=== PATIENT | male | born 1945 | race Caucasian/White ===

== ENCOUNTER 2018-12-09 14:46 | Emergency (ER) | payer MEDICARE, OTHER ==
[~2018-12-09] VITALS: Ht 177.8 cm; Wt 81.0 kg
[2018-12-09] MEDS ORDERED: HYDROcodone/acetaminophen 5mg/325mg tablet PO ONE (18:00)
[2018-12-09] MEDS ORDERED: ondansetron 4mg rapidly disintigrating tab PO ONE (18:00)
[2018-12-09] MEDS ORDERED: HYDR-4383 PO (18:40)
[2018-12-09 18:51] VITALS: BP 145/85
== END 2018-12-09 18:54 | disposition home or self-care (01) ==
LOC: ER 14:47
DX: S42.251A Displaced fracture of greater tuberosity of right humerus, initial encounter for closed fracture (principal); M25.521 Pain in right elbow; M25.551 Pain in right hip; M19.90 Unspecified osteoarthritis, unspecified site; G89.29 Other chronic pain; W11.XXXA Fall on and from ladder, initial encounter; Y93.89 Activity, other specified; Y92.89 Other specified places as the place of occurrence of the external cause; Y99.8 Other external cause status
CPT/HCPCS: 29105; 73030; 73080; 73502; 99283

== ENCOUNTER 2021-09-30 10:22 | Day surgery (SDC) | payer OTHER, MEDICARE ==
[2021-09-25 11:24] LABS: BASOPHILS % (AUTO) 0.7 % (0-1); EOSINOPHILS # (AUTO) 0.1 X10'3 (0-0.9); LYMPHOCYTES # (AUTO) 0.9 X10'3 (1.1-4.8); LYMPHOCYTES % (AUTO) 24.5 % (21-51); MEAN CORPUSCULAR HEMOGLOBIN 32.2 PG (27.0-31.0); MEAN CORPUSCULAR HGB CONC 33.1 g/dL (33.0-36.5); MEAN CORPUSCULAR VOLUME 97.1 FL (78-98); MEAN PLATELET VOLUME 8.7 FL (7.4-10.4); MONOCYTES # (AUTO) 0.4 X10'3 (0-0.9); MONOCYTES % (AUTO) 12.3 % (2-12); NEUTROPHILS % (AUTO) 58.5 % (42-75); PRE OP HEMATOCRIT 41.9 % (42.0-52.0); PRE OP HEMOGLOBIN 13.9 g/dL (14.0-17.9); PRE OP PLATELET COUNT 190 X10'3 (140-440); RED BLOOD COUNT 4.32 X10'6 (4.70-6.10); RED CELL DISTRIBUTION WIDTH 13.3 % (11.5-14.5)
[2021-09-25 11:32] LABS: ALBUMIN/GLOBULIN RATIO 1.4 (1.1-1.5); ALKALINE PHOSPHATASE 67 IU/L (46-116); BLOOD UREA NITROGEN 17 MG/DL (7-18); BUN/CREATININE RATIO 12.4 (5.4-32.0); CALCIUM 9.2 MG/DL (8.5-10.1); CHLORIDE 98 MMOL/L (99-107); CREATININE 1.37 MG/DL (0.60-1.10); PRE OP ALT 24 U/L (30-65); PRE OP ANION GAP 10 (8-16); PRE OP AST 20 U/L (10-37); PRE OP BILIRUB, TOTAL 0.5 MG/DL (0.0-1.0); PRE OP GLUCOSE 91 MG/DL (70-104); PRE OP SODIUM 135 MMOL/L (135-145); TOTAL CARBON DIOXIDE 27.4 MMOL/L (24-32); TOTAL PROTEIN 6.8 G/DL (6.4-8.2); eGFR 50 ML/MIN
[2021-09-25 11:34] LABS: PRE OP POTASSIUM 4.8 MMOL/L (3.4-5.1)
[~2021-09-30] VITALS: Ht 177.8 cm; Wt 82.1 kg
[2021-09-30] VITALS (22 sets, daily range): BP systolic 138–191; BP diastolic 70–108
[~2021-09-30 10:22] MED LIST: ALBU8.5H17 IH; APIX5TAB3 PO; ARTIFICIAL SALIVA PO; CARB15DR58 EACHEYE; CYCL1DRO EACHEYE; DICLOFENAC GEL TOP; DOCU100C40 PO; GABA600T13 PO; GUAI400T92 PO; HYDR-3964 PO; MULT-381 PO; OMEP20TA5 PO; TEMA30CA5 PO; albuterol 2.5 MG/3 ML nebule NEB ONE; cefazolin/dext.iso 2gm/50ml IV ONE; famotidine 20mg tablet PO ONE; ringers solution, lacted 1,000 ML IV SCH
[2021-09-30] MEDS ORDERED: ondansetron/PF 4mg/2ml inj IV PRN (14:50)
[2021-09-30] MEDS ORDERED: morphine 2 MG/ML inj. syringe IV PRN (14:50)
[2021-09-30] MEDS ORDERED: hydrALAZINE 20mg/ml inj. IV PRN (14:50)
[2021-09-30] MEDS ORDERED: fentaNYL/PF 50MCG/1 ML 2ML syringe IV PRN ×2 (14:50)
[2021-09-30] MEDS ORDERED: morphine 4 MG/ML inj SYRINge IV PRN (14:50)
[2021-09-30] MEDS ORDERED: ringers solution, lacted 1,000 ML IV SCH (14:50)
[2021-09-30] MEDS ORDERED: LIDOcaine 1% 30ml preserv. free vial ONE (15:16)
[2021-09-30] MEDS ORDERED: BUPIVAcaine 0.5% inj/PF 30 ML ONE (15:17)
[2021-09-30] MEDS ORDERED: dexamethasone sod phosphate 10mg/ml inj ONE (15:25)
[2021-09-30] MEDS ORDERED: sevoflurane 250ml liquid IH ONE (15:25)
[2021-09-30] MEDS ORDERED: glycopyrrolate 0.2mg/ml inj ONE (15:25)
[2021-09-30] MEDS ORDERED: fentaNYL/PF 50MCG/1 ML 2ML syringe ONE ×2 (15:27)
[2021-09-30] MEDS ORDERED: midazolam 1 mg/ML 2ml injection ONE (15:28)
[2021-09-30] MEDS ORDERED: neostigmine methylsulfate 1 MG/ML 10ml vial ONE (15:28)
[2021-09-30] MEDS ORDERED: propofol inj 20 ML IV ONE (15:28)
[2021-09-30] MEDS ORDERED: LIDOcaine 2% (20mg/ml) 5ml vial ONE (15:28)
[2021-09-30] MEDS ORDERED: rocuronium 10mg/ml inj IV ONE ×2 (15:29→16:50)
[2021-09-30] MEDS ORDERED: ondansetron/PF 4mg/2ml inj ONE (15:31)
[2021-09-30] MEDS ORDERED: labetalol 20mg/4ml (5mg/ml) syringe IV ONE (15:58)
[2021-09-30] MEDS ORDERED: BUPIVAcaine 0.5% inj/PF 30 ml vial IJ ONE (17:02)
[2021-09-30] MEDS ORDERED: oxyCODONE/APAP 5-325mg tablet PO PRN (17:25)
--- NOTE | 2021-09-30 17:26 | NUR ---
Received from OR via [facility], accompanied by Anesthesiologist DR CRAMER and report given by Anesthesiolgist. PT PRESENTS WITH 20G LEFT WRIST, ABD DRESSINF CLEAN DRY AND INTACT, VSS. Addendum: 09/30/21 at 1756 by Jacque Packer RN, RN Amended: Links added.
[2021-09-30] MEDS: enalaprilat dihydrate 2.5mg/2ml vial IV PRN ×2 (17:31→19:09)
--- NOTE | 2021-09-30 21:00 | NUR ---
PT ARRIVED TO RECOVERY VIA BED, ACCOMPANIED BY DR. CRAMER-REPORT GIVEN, VSS, DENIES PAIN, PT WAKING UP, SCDS ON, NEW GTUBE TAPED IN PLACE, WITH 3 BANDAIDS TO ABD-CDI. Addendum: 09/30/21 at 2144 by Sade Daugherty RN CHARTED ON WRONG PT
--- NOTE | 2021-09-30 21:16 | NUR ---
PT DRESSED UP IN W/C, F/C IN PLACE TOLERATING WELL-EDUCATED BY LEO SMILEY AND MYSELF, BP BETTER AFTER HYDRALAZINE DOSE, VSS, PAIN UNDER CONTROL WITH PERCOCET, PT EDUCATED FOR D/C REGARDING F/C CARE AND HOME CARE FOLLOING SX-INSTRUCTIONS GIVEN FOR BOTH, PIV REMOVED-CANULA INTACT, NO CHANGE IN ABD DRSG, TAKEN VIA W/C TO FOR TRANSPORT HOME.
== END 2021-09-30 21:16 | disposition home or self-care (01) ==
LOC: PAS 10:22
PROVIDERS: ATTEND Surgery
DX: K40.31 Unilateral inguinal hernia, with obstruction, without gangrene, recurrent (principal); K43.9 Ventral hernia without obstruction or gangrene; K42.0 Umbilical hernia with obstruction, without gangrene; G62.9 Polyneuropathy, unspecified; G89.29 Other chronic pain; I48.91 Unspecified atrial fibrillation; I12.9 Hypertensive chronic kidney disease with stage 1 through stage 4 chronic kidney disease, or unspecified chronic kidney disease; N18.30 Chronic kidney disease, stage 3 unspecified; J44.9 Chronic obstructive pulmonary disease, unspecified; K21.9 Gastro-esophageal reflux disease without esophagitis; M19.90 Unspecified osteoarthritis, unspecified site; Z72.89 Other problems related to lifestyle; Z98.890 Other specified postprocedural states; Z87.891 Personal history of nicotine dependence; Z79.01 Long term (current) use of anticoagulants; Z79.899 Other long term (current) drug therapy; Z20.822 Contact with and (suspected) exposure to COVID-19
CPT/HCPCS: 36415; 49651; 49652; 71046; 80053; 82948; 85025; 93005; C1781; J0360; J2250; J2270; J2405; J2704; J2710; J3010; J3490; J7030; J7120; S0020; U0003; U0005; Z7506; Z7508; Z7512; A4215; A4618; J0690; J1100

== ENCOUNTER 2024-12-24 15:34 | Emergency (ER) | payer OTHER, MEDICARE ==
[~2024-12-24] VITALS: Ht 177.8 cm; Wt 86.4 kg
[~2024-12-24 15:34] MED LIST changes: +GABA-1405 PO; -GABA600T13 PO; +OMEP20TA43 PO; -OMEP20TA5 PO; -albuterol 2.5 MG/3 ML nebule NEB ONE; -cefazolin/dext.iso 2gm/50ml IV ONE; -famotidine 20mg tablet PO ONE; -ringers solution, lacted 1,000 ML IV SCH
--- NOTE | 2024-12-24 15:50 | ELECTROCARDIOGRAPH REPORT ---
[facility] Test Date: 2024-12-24 Test Time: 15:47:32 Pat Name: RONAL HINES Department: SHORT STAY 1ST FLOOR Patient ID: [facility]-[id number] Room: Gender: M [employer]: : 1945 Requested By: KIRILL BRENNAN Order Number: [id number] Reading MD: Dr. Lorin Pitts Measurements Intervals Section Rate: 66 P: 0 AR: 0 QRS: 51 QRSD: 113 T: -5 QT: 425 QTc: 446 Interpretive Statements Atrial fibrillation Borderline intraventricular conduction delay Electronically Signed On 12-25-2024 18:45:[address] Lorin Pitts Please click the below link to view image of tracing.
--- NOTE | 2024-12-24 15:59 | Physician Documentation ---
History of Present Illness ~ Chief Complaint: Irregular Heartbeat Stated Complaint: ALOC Time Seen by MD: 15:59 HPI This is a patient with a history of atrial fib and chronic pain syndrome. He reports that he takes for Williams a day. He takes these after each meal and at b edtime. He notes that he took his afternoon Williams in his confident that he only took one. His then called an ambulance due to concerns for his mentation as he was acting disoriented and sleepier than usual. On arrival, he was disoriented, repetitive speech, no focal neuro deficits. Takes Eliquis. Medication Reconciliation Allergies: Coded Allergies: No Known Allergies (Unverified , 06/16/16) Scheduled Apixaban (Eliquis), 1 TAB PO Q12H, (Reported) Docusate Sodium (Docusate Sodium), 240 MG PO DAILY, (Reported) Gabapentin (Gabapentin), 400 MG PO QID, (Reported) Multivitamin with Minerals (Daily Vitamin Formula-Minerals), 1 TAB PO DAILY, (Reported) Omeprazole (Omeprazole), 2 TAB PO DAILY, (Reported) Temazepam* (Restoril*), 1 CAP PO HS, (Reported) Scheduled PRN Albuterol Sulfate (Proair Hfa), 2 PUFFS IH Q6H PRN for SOB or wheezing, (Repor gonzalez) Carboxymethylcellulose Sodium (Thera Tears), 1 DROP EACHEYE Q6H PRN for dry eyes, (Reported) Cyclosporine (Restasis), 1 DROP EACHEYE PRN PRN for dry eyes, (Reported) Guaifenesin (Guaifenesin), 400 MG PO Q4H PRN for cough, (Reported) Hydrocodone Bit/Acetaminophen (Hydrocodon-Acetaminophen 5-325), 1 EACH PO Q6H PRN for P, (Reported) [Artificial Saliva], 3-5 SPRAYS PO QID PRN for dry mouth, (Reported) [Diclofenac Gel], 1 APPLIC TOP QID PRN for P, (Reported) Past Medical History Past Medical History: Pneumonia, Hernia, Arthritis, Chronic Pain Past Surgical History: noncontributory Other Past Family History: NONCONTRIBUTORY Alcohol Use: Occasionally Drug Use: none Lives with: Spouse Occupation: disabled Review of Systems ROS As stated above in the HPI, otherwise all systems are reviewed and negative. Physical Exam Vital Signs: Temperature: 97.2, Source: Temporal, Heart Rate: 89, Respiratory Rate: 15, BP: 168/69, Pulse Oximetry: 96, Weight: 86.360 Oxygen Flow Rate: 0 Physical Exam General: Alert, no apparent distress. HEENT: PERRL, EOMI, no injection, moist mucous membranes. Neck: Full range of motion. Respiratory: Lungs clear, no respiratory distress. Chest: No accessory muscle use. Cardiovascular: Regular rate and rhythm, no murmurs. Gastrointestinal: Soft, nontender, nondistended. Bowels sounds present. Extremities: Normal range of motion, no deformity. Neurologic: Initially, following commands but repeating himself and stating "I'm not sure what's happening." Was unable to provide full hx. On reeval an hr later, was found to be alert and oriented. Able to provide hx that only took one norco and had no concerns other than feeling a little week. Cranial nerves II- XII intact at this time. No facial droop, pronator drift, or slurred speech noted. Psych: Normal mood and affect. Skin: Normal color, warm and dry. No edema, no ecchymosis. Progress Results/Orders Results/Orders Orders - BETH LOPEZ NP Accucheck (12/24/24 16:03) Ct Head (12/24/24 16:03) Page Hospitalist (12/24/24 17:32) Completed Orders - BETH LOPEZ NP Urinalysis, Cult If Indicated (12/24/24 16:03) Ct Head (12/24/24 16:03) Drug Screen, Urine (12/24/24 16:40) Vital Signs 12/24/24 15:39 Temp 97.2 Pulse 89 Resp 15 B/P (MAP) 168/69 Pulse Ox 96 O2 Flow Rate 0 Laboratory Tests Test 12/24/24 15:56 12/24/24 17:03 White Blood Count 5.5 Red Blood Count 4.12 L Hemoglobin 13.1 L Hematocrit 38.1 L Mean Corpuscular Volume 92.5 Mean Corpuscular Hemoglobin 31.8 H Mean Corpuscular Hemoglobin Concent 34.4 Red Cell Distribution Width 14.6 H Platelet Count 186 Mean Platelet Volume 8.4 Neutrophils (%) (Auto) 56.3 Lymphocytes (%) (Auto) 26.9 Monocytes (%) (Auto) 12.4 H Eosinophils (%) (Auto) 3.9 Basophils (%) (Auto) 0.5 Neutrophils # (Auto) 3.1 Lymphocytes # (Auto) 1.5 Monocytes # (Auto) 0.7 Eosinophils # (Auto) 0.2 Basophils # (Auto) 0.0 CBC Comment Sodium Level 135 Potassium Level 4.1 Chloride Level 99 Carbon Dioxide Level 29.7 Anion Gap 6 L Blood Urea Nitrogen 18 Creatinine 1.44 H Estimated GFR/1.73 m2 47 BUN/Creatinine Ratio 12.5 Glucose Level 98 Calcium Level 8.7 Total Bilirubin 0.5 Aspartate Amino Transf (AST/SGOT) 23 Alanine Aminotransferase (ALT/SGPT) 21 Alkaline Phosphatase 80 Troponin I High Sensitivity 10 Pro-B-Type Natriuretic Peptide 2383 H Total Protein 6.7 Albumin 3.6 Globulin 3.1 Albumin/Globulin Ratio 1.2 Chemistry Comments Urine Specimen Description Cln catch midstream Urine Color Yellow Urine Clarity Clear Urine pH 7.0 Urine Specific [place] 1.010 Urine Protein Negative Urine Glucose (UA) Negative Urine Ketones Negative Urine Occult Blood Negative Urine Nitrite Negative Urine Bilirubin Negative Urine Urobilinogen 0.2 Urine Leukocyte Esterase Negative Urine Culture Indicated Not ind Volume Urine Centrifuged 10 ml Urine Comment Urine Opiates Screen Positive H Urine Methadone Screen Negative Urine Fentanyl Screen Negative Urine Barbiturates Screen Negative Urine Phencyclidine Screen Negative Urine Amphetamines Screen Negative Urine Benzodiazepines Screen Negative Urine Cocaine Screen Negative Urine Cannabinoids Screen Negative Drug Screen Comment EKG/XRAY/CT/US/VASC/MRI EKG : Additional Comment 1547 EKG interpreted to show RSR rate of 66. No ST segment elevation. QTC 446 ms. Chest X-Ray : Additional Comments DIAGNOSTIC RADIOLOGY Patient: RONAL HINES Medical Record: [id number] : 1945, Age: 79 Sex: Male Location: ER Patient Status: REG ER Service Date/Time: 05/11/25/ 1548 Ordering Physician: KIRILL BRENNAN DO Exam: CHEST,SINGLE VIEW CHEST RADIOGRAPH Indication: CP Technique: Single frontal view of the chest was obtained COMPARISON: None FINDINGS: Lines and Tubes: None Lungs: Bibasilar linear airspace opacities Pleura: No effusion. No pneumothorax. Cardiomediastinal contours: Unremarkable Bones: Scattered degenerative changes. IMPRESSION: Bibasilar linear airspace opacities favored to represent subsegmental atelactasis or scarring. No lobar consolidation. Electronically Signed by:ZOEY TAN MD Date & Time: 12/24/241719 Dictated by: ZOEY TAN MD Dictation date and time: 12/24/24 162 Primary Care Provider: NO PRIMARY CARE PROVIDER cc: KIRILL BRENNAN DO ~ CT : Impression CAT SCAN Patient: RONAL HINES Medical Record: [id number] [facility] : 1945, Age: 79 Sex: Male Location: ER Patient Status: [facility] ER Service Date/Time: 12/24/241602 Ordering Physician: BETH LOPEZ COMMUNITY LIFE DIRECTOR Exam: CT HEAD EXAM: CT CT HEAD HISTORY: aloc COMPARISON: None TECHNIQUE: Noncontrast axial CT images of the head were performed. Sagittal and coronal reformatted images were obtained. This CT exam was performed using 1 or more of the following dose reduction techniques: Automated exposure control, a djustment of the mA and/or kv according to patient size, or the use of iterative reconstruction techniques. Radiation Dose: CTDI volume is 55.27 mGy. Dose-length product is 1039.59 mGy*cm FINDINGS: There is mild global brain atrophy. There is [id number] decreased attenuation in the periventricular white matter. 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 There are postoperative changes of bilateral cataract extraction surgery. No intracranial hemorrhage, mass, midline shift, hydrocephalus, or evidence of acute large vessel infarct. There is a tiny cavum septum pellucidum. The paranasal sinuses are clear. The bilateral middle ear spaces are clear. There is fluid density in the bilateral mastoid air cells. No cranial fracture or scalp edema. IMPRESSION: 1. Global brain atrophy and chronic ischemic changes without evidence of acute intracranial process. 2. Fluid density in the bilateral mastoid air cells may be due to sterile fluid or mastoiditis. Electronically Signed by:SIRISHA DE LA PAZ MD Date & Time: 12/24/241631 Dictated by: SIRISHA DE LA PAZ MD Dictation date and time: 12/24/241631 Primary Care Provider: NO PRIMARY CARE PROVIDER cc: BETH LOPEZ COMMUNITY LIFE DIRECTOR ~ Medical Decision Making Additional Information This is an 79-year-old male with a history of atrial fib on Eliquis who presented to the emergency department today with an episode of somnolence and confusion. CT head was pursued and showed no acute changes. Labs were unremarkable as was his urinalysis. He did return to baseline. This episode is concerning for a TIA. It could also represent encephalopathy in the context of his chronic QID use of opiods for chronic pain. He is appropriate for admission and the hospitalist has been contacted and requested to evaluate him for admission. Patient not agreeable to staying, hospitalist evaluation canceled. Discussed the risks and benefits, patient declines to stay, stating that he will go to the [facility] clinic in the morning. Departure Time of Disposition: 17:46 Disposition: 01 HOME / SELF CARE / HOMELESS Impression: Primary Impression: Altered level of consciousness Discharge Instructions: Altered Mental Status Additional Instructions: It is unclear what caused your symptoms. It could be that you inadvertently took two of your usual pain pills. Be very cautious with use of opioids, as they can cause somnolence and respiratory depression. Please do see your primary care provider tomorrow. Return if worse. Referrals: NO PRIMARY CARE PROVIDER (PCP) Education Educated: Patient, Family Educated regarding: diagnosis, treatment, prognosis, need for follow up Signature Scribe Signature: no scribe Attestation: The note accurately reflects work and decisions made by me.Beth Packer NP 12/24/24 16:00 BETH LOPEZ NP December 24, 2024 15:59
[2024-12-24 16:26] LABS: BASOPHILS % (AUTO) 0.5 % (0-1); EOSINOPHILS # (AUTO) 0.2 X10'3 (0-0.9); EOSINOPHILS % (AUTO) 3.9 % (0-6); HEMATOCRIT 38.1 % (42.0-52.0); HEMOGLOBIN 13.1 g/dl (14.0-17.9); LYMPHOCYTES # (AUTO) 1.5 X10'3 (1.1-4.8); LYMPHOCYTES % (AUTO) 26.9 % (21-51); MEAN CORPUSCULAR HEMOGLOBIN 31.8 PG (27.0-31.0); MEAN CORPUSCULAR HGB CONC 34.4 g/dL (33.0-36.5); MEAN CORPUSCULAR VOLUME 92.5 FL (78-98); MEAN PLATELET VOLUME 8.4 FL (7.4-10.4); MONOCYTES # (AUTO) 0.7 X10'3 (0-0.9); MONOCYTES % (AUTO) 12.4 % (2-12); NEUTROPHILS # (AUTO) 3.1 X10'3 (1.8-7.7); NEUTROPHILS % (AUTO) 56.3 % (42-75); PLATELET COUNT 186 X10'3 (140-440); RED BLOOD COUNT 4.12 X10'6 (4.70-6.10); RED CELL DISTRIBUTION WIDTH 14.6 % (11.5-14.5); WHITE BLOOD COUNT 5.5 X10'3 (4.5-11.0)
[2024-12-24 16:30] LABS: ALANINE AMINOTRANSFERASE 21 U/L (12-78); ALBUMIN 3.6 G/DL (3.4-5.0); ALBUMIN/GLOBULIN RATIO 1.2 (1.1-1.5); ALKALINE PHOSPHATASE 80 IU/L (46-116); ANION GAP 6 (8-16); ASPARTATE AMINO TRANSFERASE 23 U/L (10-37); BILIRUBIN,TOTAL 0.5 MG/DL (0.1-1.0); BLOOD UREA NITROGEN 18 MG/DL (7-18); BUN/CREATININE RATIO 12.5 (10.0-20.0); CALCIUM 8.7 MG/DL (8.5-10.1); CHLORIDE 99 MMOL/L (99-107); CREATININE 1.44 MG/DL (0.60-1.10); GLUCOSE 98 MG/DL (70-104); POTASSIUM 4.1 MMOL/L (3.5-5.1); SODIUM 135 MMOL/L (135-145); TOTAL CARBON DIOXIDE 29.7 MMOL/L (24-32); TOTAL PROTEIN 6.7 G/DL (6.4-8.2); eCRCL 42 ML/MIN; eGFR 47 ML/MIN
--- NOTE | 2024-12-24 16:35 | RADIOLOGY REPORT ---
EXAM: CT CT HEAD HISTORY: aloc COMPARISON: None TECHNIQUE: Noncontrast axial CT images of the head were performed. Sagittal and coronal reformatted i mages were obtained. This CT exam was performed using 1 or more of the following dose reduction techn iques: Automated exposure control, adjustment of the mA and/or kv according to patient size, or the u se of iterative reconstruction techniques. Radiation Dose: CTDI volume is 55.27 mGy. Dose-length product is 1039.59 mGy*cm FINDINGS: There is mild global brain atrophy. There is exqr-[id number] decreased attenuation in the periventri cular white matter. 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 There are postoperative changes of bilateral cataract extraction surgery. No intracranial hemorrhage, mass, midline shift, hydrocephalus, or evidence of acute large vessel infarct. There is a tiny cavum septum pellucidum. The paranasal sinuses are clear. The bilateral middle ear spaces are clear. There is fluid density in the bilateral mastoid air cells. No cranial fracture or scalp edema. IMPRESSION: 1. Global brain atrophy and chronic ischemic changes without evidence of acute intracranial process. 2. Fluid density in the bilateral mastoid air cells may be due to sterile fluid or mastoiditis.
[2024-12-24 16:37] LABS: PRO BRAIN NATRIURETIC PEPTIDE 2383 PG/ML (0-450)
[2024-12-24 17:18] LABS: BILIRUBIN,URINE NEGATIVE (Neg); CLARITY,URINE CLEAR (Clear); COLOR,URINE YELLOW (Yellow); GLUCOSE, URINE NEGATIVE (Neg); KETONES,URINE NEGATIVE (Neg); LEUKOCYTE ESTERASE ,URINE NEGATIVE (Neg); NITRITES, URINE NEGATIVE (Neg); OCCULT BLOOD,URINE NEGATIVE (Neg); PROTEIN,URINE NEGATIVE (Neg); UROBILINOGEN,URINE 0.2 E.U/dL (0.2-1.0)
[2024-12-24 17:21] LABS: URINE AMPHETAMINE SCREEN NEGATIVE (Neg); URINE BARBITUATE SCREEN NEGATIVE (Neg); URINE BENZODIAZEPINES SCREEN NEGATIVE (Neg); URINE COCAINE SCREEN NEGATIVE (Neg); URINE METHADONE SCREEN NEGATIVE (Neg); URINE PHENCYCLIDINE SCREEN NEGATIVE (Neg)
[2024-12-24 17:22] LABS: UA COLLECTION TYPE CLN CATCH MIDSTREAM; URINE CANNABINOID SCREEN NEGATIVE (Neg); URINE OPIATE SCREEN POSITIVE (Neg)
--- NOTE | 2024-12-24 17:22 | RADIOLOGY REPORT ---
CHEST RADIOGRAPH Indication: CP Technique: Single frontal view of the chest was obtained COMPARISON: None FINDINGS: Lines and Tubes: None Lungs: Bibasilar linear airspace opacities Pleura: No effusion. No pneumothorax. Cardiomediastinal contours: Unremarkable Bones: Scattered degenerative changes. IMPRESSION: Bibasilar linear airspace opacities favored to represent subsegmental atelactasis or scarring. No lo bar consolidation.
[2024-12-24 17:55] VITALS: BP 142/120; PULSE 77; RESP 19; TEMP 98; O2SAT 98
== END 2024-12-24 17:56 | disposition home or self-care (01) ==
LOC: ER 15:34
DX: R40.4 Transient alteration of awareness (principal); M19.90 Unspecified osteoarthritis, unspecified site
CPT/HCPCS: 36415; 70450; 71045; 80053; 80305; 81003; 83880; 84484; 85025; 93005; 99285